=== PATIENT | male | born 1955 | race Caucasian/White ===

== ENCOUNTER 2017-02-13 06:52 | Outpatient (CLI) | payer MEDICARE, OTHER ==
[2017-02-13 07:30] LABS: ALBUMIN/GLOBULIN RATIO 1.3 (1.0-2.2); BILIRUBIN,TOTAL 0.9 mg/dL (0.2-1.0); CALCIUM 9.9 mg/dL (8.5-10.3); CREATININE 1.2 mg/dL (0.6-1.2); MAGNESIUM 1.9 mg/dL (1.7-2.8); PHOSPHORUS 2.2 mg/dL (2.5-4.6); TOTAL PROTEIN 6.8 g/dL (6.7-8.2)
[2017-02-13 07:45] LABS: BASOPHILS % (AUTO) 0.8 %; EOSINOPHILS # (AUTO) 0.3 10^3/uL (0.0-0.7); EOSINOPHILS % (AUTO) 5.6 %; HGB - HEMOGLOBIN 14.3 g/dL (14.0-18.0); LYMPHOCYTES # (AUTO) 1.1 10^3/uL (1.5-3.5); LYMPHOCYTES % (AUTO) 22.2 %; MEAN CORPUSCULAR HEMOGLOBIN 27.9 pg (27.0-31.0); MEAN CORPUSCULAR HGB CONC 33.3 g/dL (32.0-36.0); MEAN CORPUSCULAR VOLUME 83.6 fL (80.0-94.0); MEAN PLATELET VOLUME 6.9 fL (7.4-11.4); MONOCYTES # (AUTO) 0.7 10^3/uL (0.0-1.0); MONOCYTES % (AUTO) 14.8 %; NEUTROPHILS # (AUTO) 2.8 10^3/uL (1.5-6.6); NEUTROPHILS % (AUTO) 56.6 %; NUCLEATED RED BLOOD CELLS AUTO 0.1 /100WBC; RED BLOOD COUNT 5.15 10^6/uL (4.70-6.10); RED CELL DISTRIBUTION WIDTH 14.6 % (12.0-15.0)
[2017-02-16 18:31] LABS: TEST RESULT REPORT (())
== END 2017-02-13 06:53 | disposition home or self-care (01) ==
LOC: LAB 06:52
PROVIDERS: ATTEND Internal Medicine Nephrology
DX: Z94.0 Kidney transplant status (principal); Z51.81 Encounter for therapeutic drug level monitoring; E21.3 Hyperparathyroidism, unspecified; E55.9 Vitamin D deficiency, unspecified
CPT/HCPCS: 36415; 80053; 80195; 81599; 82570; 83735; 84100; 84156; 85025

== ENCOUNTER 2017-05-20 10:59 | Outpatient (CLI) | payer MEDICARE, OTHER ==
[2017-05-20 17:55] LABS: BASOPHILS # (AUTO) 0.1 10^3/uL (0.0-0.1); EOSINOPHILS # (AUTO) 0.1 10^3/uL (0.0-0.7); EOSINOPHILS % (AUTO) 1.5 %; HCT - HEMATOCRIT 42.4 % (42.0-52.0); HGB - HEMOGLOBIN 14.3 g/dL (14.0-18.0); LYMPHOCYTES # (AUTO) 1.4 10^3/uL (1.5-3.5); LYMPHOCYTES % (AUTO) 23.3 %; MEAN CORPUSCULAR HEMOGLOBIN 27.8 pg (27.0-31.0); MEAN CORPUSCULAR HGB CONC 33.7 g/dL (32.0-36.0); MEAN CORPUSCULAR VOLUME 82.6 fL (80.0-94.0); MEAN PLATELET VOLUME 7.5 fL (7.4-11.4); MONOCYTES # (AUTO) 0.7 10^3/uL (0.0-1.0); MONOCYTES % (AUTO) 12.1 %; NEUTROPHILS # (AUTO) 3.7 10^3/uL (1.5-6.6); NEUTROPHILS % (AUTO) 62.1 %; NUCLEATED RED BLOOD CELLS AUTO 0.1 /100WBC; RED BLOOD COUNT 5.14 10^6/uL (4.70-6.10); RED CELL DISTRIBUTION WIDTH 14.1 % (12.0-15.0); UNCORRECTED WHITE BLOOD COUNT 5.9 x10^3/uL; WHITE BLOOD COUNT 5.9 x10^3/uL (4.8-10.8)
[2017-05-20 18:40] LABS: HEMOGLOBIN A1C 0.54 g/dL
[2017-05-20 18:53] LABS: ALBUMIN/GLOBULIN RATIO 1.5 (1.0-2.2); BILIRUBIN,TOTAL 0.8 mg/dL (0.2-1.0); CALCIUM 9.9 mg/dL (8.5-10.3); CREATININE 1.2 mg/dL (0.6-1.2); POTASSIUM 4.2 mmol/L (3.5-5.0); TOTAL PROTEIN 6.2 g/dL (6.7-8.2)
[2017-05-20 18:54] LABS: FREE T3 3.39 pg/mL (2.5-3.9)
[2017-05-20 18:59] LABS: FERRITIN 132.6 ng/mL (23.9-336.2); TOTAL T3 1.04 ng/mL (0.87-1.78)
[2017-05-20 19:11] LABS: THYROID STIMULATING HORMONE 2.41 uIU/mL (0.34-5.60)
[2017-05-21 10:06] LABS: HOMOCYSTEINE 12.4 umol/L (<11.4)
== END 2017-05-20 11:00 | disposition home or self-care (01) ==
LOC: LAB.F 10:59
PROVIDERS: ATTEND Family Medicine
DX: R53.83 Other fatigue (principal); E55.9 Vitamin D deficiency, unspecified; E03.9 Hypothyroidism, unspecified
CPT/HCPCS: 36415; 80053; 82306; 82626; 82728; 83036; 83090; 84403; 84439; 84443; 84480; 84481; 84482; 85025

== ENCOUNTER 2017-07-21 08:00 | Outpatient (CLI) | payer MEDICARE, OTHER ==
[2017-07-22 10:57] LABS: CALCIUM 9.9 mg/dL (8.5-10.3); CREATININE 1.2 mg/dL (0.6-1.2); POTASSIUM 3.9 mmol/L (3.5-5.0)
[2017-07-22 11:17] LABS: THYROID STIMULATING HORMONE 4.49 uIU/mL (0.34-5.60)
[2017-07-22 11:24] LABS: TOTAL T3 1.32 ng/mL (0.87-1.78)
[2017-07-23 10:23] LABS: HOMOCYSTEINE 13.3 umol/L (<11.4)
== END 2017-07-21 08:01 | disposition home or self-care (01) ==
LOC: LAB.F 08:00
PROVIDERS: ATTEND Family Medicine
DX: N18.9 Chronic kidney disease, unspecified (principal); R53.83 Other fatigue; E55.9 Vitamin D deficiency, unspecified; E03.9 Hypothyroidism, unspecified
CPT/HCPCS: 36415; 80048; 82306; 82626; 83090; 84439; 84443; 84480; 84481; 84482

== ENCOUNTER 2018-01-25 07:45 | Outpatient (CLI) | payer MEDICARE, OTHER ==
[2018-01-25 08:44] LABS: BASOPHILS # (AUTO) 0.1 10^3/uL (0.0-0.1); BASOPHILS % (AUTO) 1.1 %; EOSINOPHILS # (AUTO) 0.1 10^3/uL (0.0-0.7); EOSINOPHILS % (AUTO) 2.4 %; HGB - HEMOGLOBIN 13.9 g/dL (14.0-18.0); LYMPHOCYTES % (AUTO) 18.4 %; MEAN CORPUSCULAR HEMOGLOBIN 27.3 pg (27.0-31.0); MEAN CORPUSCULAR HGB CONC 33.5 g/dL (32.0-36.0); MEAN CORPUSCULAR VOLUME 81.6 fL (80.0-94.0); MEAN PLATELET VOLUME 6.6 fL (7.4-11.4); MONOCYTES # (AUTO) 0.7 10^3/uL (0.0-1.0); NEUTROPHILS # (AUTO) 3.8 10^3/uL (1.5-6.6); NEUTROPHILS % (AUTO) 66.1 %; PLT - PLATELET COUNT 275 10^3/uL (130-450); RED CELL DISTRIBUTION WIDTH 14.1 % (12.0-15.0); WHITE BLOOD COUNT 5.7 x10^3/uL (4.8-10.8)
[2018-01-25 09:12] LABS: ALBUMIN 3.5 g/dL (3.2-5.5); ALBUMIN/GLOBULIN RATIO 1.1 (1.0-2.2); BILIRUBIN,TOTAL 0.7 mg/dL (0.2-1.0); CALCIUM 9.7 mg/dL (8.5-10.3); MAGNESIUM 1.9 mg/dL (1.7-2.8); PHOSPHORUS 2.1 mg/dL (2.5-4.6); TOTAL PROTEIN 6.6 g/dL (6.7-8.2)
[2018-01-25 09:24] LABS: PROTEIN/CREATININE RATIO,URINE 1.3 (<=0.2)
== END 2018-01-25 07:46 | disposition home or self-care (01) ==
LOC: LAB 07:45
PROVIDERS: ATTEND Internal Medicine Nephrology
DX: Z94.0 Kidney transplant status (principal); Z51.81 Encounter for therapeutic drug level monitoring; E21.3 Hyperparathyroidism, unspecified; E55.9 Vitamin D deficiency, unspecified
CPT/HCPCS: 36415; 80053; 81599; 82570; 83735; 84100; 84156; 85025

== ENCOUNTER 2018-11-16 07:13 | Outpatient (CLI) | payer MEDICARE, OTHER ==
[2018-11-16 07:40] LABS: BASOPHILS % (AUTO) 0.9 %; EOSINOPHILS # (AUTO) 0.1 10^3/uL (0.0-0.7); EOSINOPHILS % (AUTO) 2.4 %; HGB - HEMOGLOBIN 14.6 g/dL (14.0-18.0); LYMPHOCYTES # (AUTO) 1.5 10^3/uL (1.5-3.5); LYMPHOCYTES % (AUTO) 28.4 %; MEAN CORPUSCULAR HGB CONC 32.9 g/dL (32.0-36.0); MEAN CORPUSCULAR VOLUME 82.1 fL (80.0-94.0); MEAN PLATELET VOLUME 6.7 fL (7.4-11.4); MONOCYTES # (AUTO) 0.6 10^3/uL (0.0-1.0); MONOCYTES % (AUTO) 12.5 %; NEUTROPHILS # (AUTO) 2.9 10^3/uL (1.5-6.6); NEUTROPHILS % (AUTO) 55.8 %; PLT - PLATELET COUNT 302 10^3/uL (130-450); RED CELL DISTRIBUTION WIDTH 15.7 % (12.0-15.0); WHITE BLOOD COUNT 5.1 x10^3/uL (4.8-10.8)
[2018-11-16 08:01] LABS: ALBUMIN 3.6 g/dL (3.2-5.5); ALBUMIN/GLOBULIN RATIO 1.3 (1.0-2.2); MAGNESIUM 2.1 mg/dL (1.7-2.8); PHOSPHORUS 2.7 mg/dL (2.5-4.6); TOTAL PROTEIN 6.4 g/dL (6.7-8.2)
[2018-11-16 08:03] LABS: CREATININE,URINE 94.5 mg/dL; PROTEIN/CREATININE RATIO,URINE 1.4 (<=0.2)
== END 2018-11-16 07:14 | disposition home or self-care (01) ==
LOC: LAB 07:13
PROVIDERS: ATTEND Internal Medicine Nephrology
DX: E55.9 Vitamin D deficiency, unspecified (principal); Z51.81 Encounter for therapeutic drug level monitoring; E21.3 Hyperparathyroidism, unspecified; Z94.0 Kidney transplant status
CPT/HCPCS: 36415; 80053; 81599; 82570; 83735; 84100; 84156; 85025

== ENCOUNTER 2019-03-08 10:46 | Emergency (ER) | payer MEDICARE, OTHER ==
--- NOTE | 2019-03-08 11:39 | XRAY Report ---
Reason: cough, fever Procedure Date: 03/08/2019 Accession Number: [id number] / [id number] Procedure: XR - Chest 2 View X-Ray CPT Code: 96071 FULL RESULT: EXAM: CHEST RADIOGRAPHY EXAM DATE: 03/08/2019 11:13 AM. CLINICAL HISTORY: Cough and fever. COMPARISON: CHEST 2 VIEW PA/LAT 12/05/2014 8:23 AM. TECHNIQUE: 2 views. FINDINGS: Lungs/Pleura: No focal opacities evident. No pleural effusion. No pneumothorax. Stable flattening of the hemidiaphragms with attenuation of the upper lobe bronchovascular markings, suggesting COPD. Mediastinum: The cardiac silhouette size is normal. Stable tortuous thoracic aorta. Other: Stable postsurgical changes in the upper abdomen. Stable multilevel cervical spondylosis. IMPRESSION: 1. No acute findings. 2. COPD, unchanged when compared to the prior study. 3. Other stable chronic degenerative and postsurgical changes. RADIA
[2019-03-08 11:47] LABS: BASOPHILS % (AUTO) 0.4 %; EOSINOPHILS % (AUTO) 0.2 %; HGB - HEMOGLOBIN 15.4 g/dL (14.0-18.0); LYMPHOCYTES # (AUTO) 0.8 10^3/uL (1.5-3.5); LYMPHOCYTES % (AUTO) 9.4 %; MEAN CORPUSCULAR HEMOGLOBIN 26.9 pg (27.0-31.0); MEAN CORPUSCULAR VOLUME 84.1 fL (80.0-94.0); MEAN PLATELET VOLUME 8.7 fL (7.4-11.4); MONOCYTES # (AUTO) 0.9 10^3/uL (0.0-1.0); MONOCYTES % (AUTO) 11.2 %; NEUTROPHILS # (AUTO) 6.3 10^3/uL (1.5-6.6); NEUTROPHILS % (AUTO) 78.4 %; PLT - PLATELET COUNT 285 10^3/uL (130-450); RED BLOOD COUNT 5.73 10^6/uL (4.70-6.10); RED CELL DISTRIBUTION WIDTH 13.7 % (12.0-15.0)
[2019-03-08 11:58] LABS: ALBUMIN 3.9 g/dL (3.2-5.5); ALBUMIN/GLOBULIN RATIO 1.1 (1.0-2.2); BILIRUBIN,TOTAL 0.6 mg/dL (0.2-1.0); CALCIUM 9.9 mg/dL (8.5-10.3); CREATININE 1.2 mg/dL (0.6-1.2); TOTAL PROTEIN 7.6 g/dL (6.7-8.2)
[2019-03-08 13:23] VITALS: BP 151/95
[2019-03-08] MEDS ORDERED: ACETAMINOPHEN 325 MG TABLET PO STA (13:43)
[2019-03-08] MEDS ORDERED: DOXYCYCLINE 100 MG TABLET PO STA (13:43)
--- NOTE | 2019-03-08 13:47 | ED Physician Documentation ---
History of Present Illness - Stated complaint Stated Complaint: FEVER,COUGHING - Chief complaint Chief Complaint: General - History obtained from History obtained from: Patient - History of Present Illness Timing: How many days ago (3) Pain level max: 0 Pain level now: 0 - Additonal information Additional information: 64-year-old gentleman history of a renal transplant in 2002 states that he developed a fever and coughing 2 days ago. Increased coughing today. Came in for evaluation. Nothing makes it better or worse. Has not taken any Tylenol today. No vomiting. No diarrhea. No abdominal pain. Review of Systems Ten Systems: 10 systems reviewed and negative Constitutional: reports: Fever GI: denies: Vomiting, Diarrhea Skin: denies: Rash Musculoskeletal: denies: Neck pain, Back pain Neurologic: denies: Headache PD PAST MEDICAL HISTORY - Past Medical History Respiratory: None : Dialysis Musculoskeletal: Gout - Past Surgical History Past Surgical History: Yes - Present Medications Home Medications: Ambulatory Orders Medication Instructions Recorded Confirmed Allopurinol 100 mg DAILY 03/13/14 07/04/14 Amoxicillin/Potassium Clav 1 each PO BID 14 Days tablet 03/13/14 07/04/14 [Augmentin 875-125 Tablet] Losartan [Cozaar] 100 mg DAILY 03/13/14 07/04/14 Mycophenolate Sodium [Myfortic] 360 mg BID 03/13/14 07/04/14 Sirolimus [Rapamune] 4 mg DAILY 03/13/14 07/04/14 Doxycycline Hyclate 100 mg PO BID #20 capsule 03/08/19 - Allergies Allergies/Adverse Reactions: Allergies Allergy/AdvReac Type Severity Reaction Status Date / Time lisinopril AdvReac Edema Verified 03/08/19 11:00 - Social History Does the pt smoke?: No Smoking Status: Never smoker Does the pt drink ETOH?: Yes Does the pt have substance abuse?: No PD ED PE NORMAL - Vitals Vital signs reviewed: Yes - General General: Alert and oriented X 3, No acute distress - HEENT HEENT: Moist mucous membranes - Neck Neck: Supple, no meningeal sign - Cardiac Cardiac: RRR - Respiratory Respiratory: No respiratory distress, Other (wheezing B) - Abdomen Abdomen: Soft, Non tender, Non distended - Back Back: No CVA TTP, No spinal TTP - Derm Derm: Warm and dry - Extremities Extremities: No edema - Neuro Neuro: Alert and oriented X 3 Results - Vitals Vitals: Vital Signs - 24 hr 03/08/19 13:20 Temperature 39.2 C H Respiratory 20 Rate Blood Pressure 151/95 H O2 Saturation 98 Oxygen O2 Source Room air - Labs Labs: Laboratory Tests 03/08/19 03/08/19 03/08/19 11:39 11:39 14:00 WBC 8.0 RBC 5.73 Hgb 15.4 Hct 48.2 MCV 84.1 MCH 26.9 L MCHC 32.0 RDW 13.7 Plt Count 285 MPV 8.7 Neut # (Auto) 6.3 Lymph # (Auto) 0.8 L Ogle # (Auto) 0.9 Eos # (Auto) 0.0 Baso # (Auto) 0.0 Absolute Nucleated RBC 0.00 Nucleated RBC % 0.0 Sodium 135 Potassium 4.1 Chloride 99 L Carbon Dioxide 24 Anion Gap 12.0 BUN 16 Creatinine 1.2 Estimated GFR (MDRD) 61 L Glucose 97 Lactic Acid 1.1 Calcium 9.9 Total Bilirubin 0.6 AST 34 ALT 39 Alkaline Phosphatase 51 Total Protein 7.6 Albumin 3.9 Globulin 3.7 Albumin/Globulin Ratio 1.1 Lipase 39 - Rads (name of study) Chest x-ray Radiology: Prelim report reviewed, EMP read contemporaneously, See rad report (No acute findings. COPD, unchanged when compared to the prior study. . Other stable chronic degenerative and postsurgical changes. ) PD MEDICAL DECISION MAKING - ED course Complexity details: reviewed results, re-evaluated patient, considered differential, d/w patient ED course: Patient is a renal transplant patient on immunosuppression. Will place on doxycycline. No pneumonia on chest x-ray. He is very well-appearing, nontoxic. Blood cultures drawn. Patient is comfortable going home and will return if he worsens. 1.2 is near his baseline creatinine. Patient counseled regarding signs and symptoms for which I believe and urgent re-evaluation would be necessary. Patient with good understanding of and agreement to plan and is comfortable going home at this time This document was made in part using voice recognition software. While efforts are made to proofread this document, sound alike and grammatical errors may occur. Departure - Departure Disposition: 01 Home, Self Care Clinical Impression: History of renal transplantation Fever Qualifiers: Fever type: unspecified Qualified Code(s): R50.9 - Fever, unspecified Condition: Good Instructions: ED Fever Unconf Cause Follow-Up: your,doctor in 3 days. [Other] Prescriptions: Doxycycline Hyclate 100 mg PO BID #20 capsule Comments: Take all antibiotics until gone. Return if you worsen. Follow-up with your doctor in 3 days for repeat evaluation. Your creatinine is 1.2 today. Discharge Date/Time: 03/08/19 14:07
== END 2019-03-08 14:07 | disposition home or self-care (01) ==
LOC: ED 10:46
DX: R50.9 Fever, unspecified (principal); Z94.0 Kidney transplant status; Z99.2 Dependence on renal dialysis; Z79.899 Other long term (current) drug therapy
CPT/HCPCS: 36415; 71046; 80053; 83605; 83690; 85025; 87040; 99283; A9270

== ENCOUNTER 2019-03-30 06:54 | Outpatient (CLI) | payer MEDICARE, OTHER ==
[2019-03-30 07:27] LABS: BASOPHILS % (AUTO) 0.1 %; EOSINOPHILS % (AUTO) 0.1 %; HGB - HEMOGLOBIN 13.6 g/dL (14.0-18.0); LYMPHOCYTES # (AUTO) 1.1 10^3/uL (1.5-3.5); LYMPHOCYTES % (AUTO) 13.2 %; MEAN CORPUSCULAR HEMOGLOBIN 26.9 pg (27.0-31.0); MEAN CORPUSCULAR HGB CONC 32.3 g/dL (32.0-36.0); MEAN CORPUSCULAR VOLUME 83.4 fL (80.0-94.0); MEAN PLATELET VOLUME 8.5 fL (7.4-11.4); MONOCYTES # (AUTO) 0.5 10^3/uL (0.0-1.0); MONOCYTES % (AUTO) 5.7 %; NEUTROPHILS # (AUTO) 6.8 10^3/uL (1.5-6.6); PLT - PLATELET COUNT 345 10^3/uL (130-450); RED BLOOD COUNT 5.05 10^6/uL (4.70-6.10); RED CELL DISTRIBUTION WIDTH 13.8 % (12.0-15.0); WHITE BLOOD COUNT 8.4 x10^3/uL (4.8-10.8)
[2019-03-30 07:29] LABS: BILIRUBIN,URINE NEGATIVE (NEGATIVE); GLUCOSE, URINE (UA) NEGATIVE (NEGATIVE); KETONES,URINE (UA) NEGATIVE (NEGATIVE); LEUKOCYTE ESTERASE, URINE NEGATIVE (NEGATIVE); NITRITE,URINE NEGATIVE (NEGATIVE); OCCULT BLOOD,URINE NEGATIVE (NEGATIVE); PH,URINE 6.5 PH (5.0-7.5); PROTEIN,URINE 100 mg/dL (NEGATIVE); UROBILINOGEN,URINE 0.2 (NORMAL) E.U./dL (NORMAL)
[2019-03-30 07:30] LABS: CLARITY,URINE CLEAR (CLEAR)
[2019-03-30 07:35] LABS: BACTERIA,URINE Rare /HPF (None Seen); RBC,URINE 0-5 /HPF (0-5); SQUAMOUS EPITHELIAL CELL,UR RARE Squamous (<= Few)
[2019-03-30 07:42] LABS: CREATININE,URINE 111.7 mg/dL
[2019-03-30 07:49] LABS: BILIRUBIN,TOTAL 0.6 mg/dL (0.2-1.0); CREATININE 1.1 mg/dL (0.6-1.2); MAGNESIUM 2.1 mg/dL (1.7-2.8); PHOSPHORUS 2.5 mg/dL (2.5-4.6)
[2019-03-30 07:50] LABS: ALBUMIN 3.6 g/dL (3.2-5.5); ALBUMIN/GLOBULIN RATIO 1.1 (1.0-2.2); TOTAL PROTEIN 6.8 g/dL (6.7-8.2)
[2019-03-30 07:56] LABS: PROTEIN/CREATININE RATIO,URINE 1.2 (<=0.2)
[2019-04-01 04:22] LABS: BK VIRUS DNA QN PCR NO DNA DETECTED copies/mL; SOURCE WHOLE BLOOD
== END 2019-03-30 06:55 | disposition home or self-care (01) ==
LOC: LAB 06:54
PROVIDERS: ATTEND Internal Medicine Nephrology
DX: Z51.81 Encounter for therapeutic drug level monitoring (principal); Z94.0 Kidney transplant status; E21.3 Hyperparathyroidism, unspecified; E55.9 Vitamin D deficiency, unspecified
CPT/HCPCS: 36415; 80053; 80180; 80195; 81001; 81599; 82570; 83735; 83970; 84100; 84156; 85025

== ENCOUNTER 2019-09-09 07:39 | Outpatient (CLI) | payer MEDICARE, OTHER ==
[2019-09-09 08:24] LABS: BILIRUBIN,URINE NEGATIVE (NEGATIVE); GLUCOSE, URINE (UA) NEGATIVE (NEGATIVE); KETONES,URINE (UA) NEGATIVE (NEGATIVE); LEUKOCYTE ESTERASE, URINE NEGATIVE (NEGATIVE); NITRITE,URINE NEGATIVE (NEGATIVE); OCCULT BLOOD,URINE NEGATIVE (NEGATIVE); PH,URINE 6.5 PH (5.0-7.5); PROTEIN,URINE 100 mg/dL (NEGATIVE); UROBILINOGEN,URINE 0.2 (NORMAL) E.U./dL (NORMAL)
[2019-09-09 08:27] LABS: CLARITY,URINE CLEAR (CLEAR)
[2019-09-09 08:37] LABS: BASOPHILS % (AUTO) 0.7 %; EOSINOPHILS # (AUTO) 0.1 10^3/uL (0.0-0.7); EOSINOPHILS % (AUTO) 2.2 %; HGB - HEMOGLOBIN 14.6 g/dL (14.0-18.0); LYMPHOCYTES # (AUTO) 1.4 10^3/uL (1.5-3.5); LYMPHOCYTES % (AUTO) 25.5 %; MEAN CORPUSCULAR HEMOGLOBIN 26.8 pg (27.0-31.0); MEAN CORPUSCULAR HGB CONC 32.4 g/dL (32.0-36.0); MEAN CORPUSCULAR VOLUME 82.6 fL (80.0-94.0); MEAN PLATELET VOLUME 8.8 fL (7.4-11.4); MONOCYTES # (AUTO) 0.6 10^3/uL (0.0-1.0); MONOCYTES % (AUTO) 11.1 %; NEUTROPHILS # (AUTO) 3.3 10^3/uL (1.5-6.6); PLT - PLATELET COUNT 313 10^3/uL (130-450); RED BLOOD COUNT 5.45 10^6/uL (4.70-6.10); RED CELL DISTRIBUTION WIDTH 13.7 % (12.0-15.0); WHITE BLOOD COUNT 5.5 x10^3/uL (4.8-10.8)
[2019-09-09 08:45] LABS: ALBUMIN 3.8 g/dL (3.2-5.5); ALBUMIN/GLOBULIN RATIO 1.2 (1.0-2.2); CALCIUM 9.9 mg/dL (8.5-10.3); CREATININE 1.3 mg/dL (0.6-1.2); MAGNESIUM 2.1 mg/dL (1.7-2.8); PHOSPHORUS 2.5 mg/dL (2.5-4.6); TOTAL PROTEIN 6.9 g/dL (6.7-8.2)
[2019-09-09 08:56] LABS: BACTERIA,URINE None Seen /HPF (None Seen); RBC,URINE 0-5 /HPF (0-5); SQUAMOUS EPITHELIAL CELL,UR NONE SEEN (<= Few)
[2019-09-09 09:07] LABS: CREATININE,URINE 99.3 mg/dL; PROTEIN/CREATININE RATIO,URINE 1.2 (<=0.2)
== END 2019-09-09 07:40 | disposition home or self-care (01) ==
LOC: LAB 07:39
PROVIDERS: ATTEND Internal Medicine Nephrology
DX: Z94.0 Kidney transplant status (principal); Z51.81 Encounter for therapeutic drug level monitoring; E55.9 Vitamin D deficiency, unspecified; E21.3 Hyperparathyroidism, unspecified; Z79.899 Other long term (current) drug therapy
CPT/HCPCS: 36415; 80053; 80180; 80195; 81001; 81599; 82570; 83735; 83970; 84100; 84156; 85025; 87799

== ENCOUNTER 2019-12-24 14:37 | Outpatient (CLI) | payer MEDICARE, OTHER | END 2019-12-24 14:38 | disposition critical access hospital (66) | LOC: EMS 14:37 | PROVIDERS: ATTEND Surgery | DX: R42 Dizziness and giddiness (principal); R68.83 Chills (without fever) | CPT/HCPCS: A0425; A0429 ==

== ENCOUNTER 2019-12-24 19:34 | Outpatient (CLI) | payer MEDICARE, OTHER | END 2019-12-24 19:35 | disposition short-term general hospital (02) | LOC: EMS 19:34 | PROVIDERS: ATTEND Surgery | DX: R42 Dizziness and giddiness (principal) | CPT/HCPCS: A0425; A0426 ==